=== PATIENT | female | born 2000 | race Caucasian/White ===

== ENCOUNTER 2024-11-06 22:00 | Emergency (ER) | payer SELFPAY ==
[~2024-11-06] VITALS: Ht 172.7 cm; Wt 64.0 kg
[2024-11-06 22:18] VITALS: BP 104/68; PULSE 83; RESP 18; TEMP 98.5; O2SAT 98
== END 2024-11-06 22:43 | disposition home or self-care (01) ==
LOC: EDSEX 22:00 → ER 22:00
DX: F10.129 Alcohol abuse with intoxication, unspecified (principal); Y90.9 Presence of alcohol in blood, level not specified
CPT/HCPCS: 99283